=== PATIENT | female | born 1945 | race Caucasian/White ===

== ENCOUNTER 2021-12-08 05:18 | Inpatient (IN) ==
[2021-12-02 11:25] LABS: Basophils # 0.1 10*3/uL (0.0-0.2); Basophils % 0.8 % (0.0-0.8); Eosinophils # 0.1 10*3/uL (0.0-0.87); Eosinophils % 0.7 % (0.00-10.9); Hematocrit 37.4 VOL% (35.7-47.0); Hemoglobin 12.3 GM/DL (12.0-16.0); Immature Granulocytes % 0.5 %; Immature Granulocytes Absolute 0.05 #; Lymphocytes # 1.5 10*3/uL (1.4-4.0); Mean Corpuscular HGB Conc 32.9 GM/DL (32-36); Mean Corpuscular Volume 94.4 FL (87-102); Mean Platelet Volume 10.5 FL (9.6-12.0); Monocytes # 0.6 10*3/uL (0.11-0.8); Monocytes % 5.4 % (1.7-12.7); Neutrophils % 77.6 % (38.7-73.9); Platelet Count 194 T/CUMM (130-400); Red Blood Count 3.96 MC/CUMM (3.8-5.5); Red Cell Distribution Width 12.6 % (9.3-17.3); White Blood Count 10.3 T/CUMM (4-12)
[2021-12-02 11:32] LABS: Bacteria,Urine Occasional /HPF (Few); Mucus,Urine Many /LPF (Occasional); RBC,Urine 1 /HPF (0-4); Squamous Epithelial Cell,Urine Occasional /HPF (0-10); Urine Appearance Clear (Clear); Urine Color Yellow (Yellow)
[2021-12-02 11:33] LABS: Bilirubin,Urine Negative (Negative); Blood, Urine Negative (Negative); Glucose,Urine (UA) Negative (Negative); Ketones,Urine Negative (Negative); Nitrite,Urine Negative (Negative); Protein,Urine Negative (Negative); Urine Urobilinogen 0.2 eU/dL (<2.0); Urine pH 5.5 (4.5-8.0)
[2021-12-02 11:37] LABS: PT Patient Result 10.9 SECS (10.5-12.0); Partial Thromboplastin Time 27.9 SECS (23.7-32.9)
[2021-12-02 11:52] LABS: Albumin 4.5 G/DL (3.4-5.0); Bilirubin,Total 1.2 MG/DL (0.20-1.00); Calcium 9.6 MG/DL (8.5-10.1); Osmolality,Calculated 283.7 MOS/KG (273-304); Potassium 4.8 MMOL/L (3.5-5.1)
[2021-12-08] MEDS ORDERED: VANCOMYCIN INJ 1,000 MG in SODIUM CHLORIDE 0.9% 250 ML IV ONE (06:00)
[2021-12-08] MEDS ORDERED: BUPIVACAINE MPF 0.5% 30 ML VIAL ONE (06:27)
[2021-12-08] MEDS ORDERED: DEXAMETHASONE 4 MG/1 ML VIAL ONE ×2 (06:27→08:12)
[2021-12-08] MEDS ORDERED: MIDAZOLAM 2 MG/2 ML VIAL ONE (06:27)
[2021-12-08] MEDS ORDERED: propofoL 200 MG/20 ML VIAL IV ONE (06:27)
[2021-12-08] MEDS ORDERED: ONDANSETRON 4 MG/2 ML VIAL ONE (06:27)
[2021-12-08] MEDS ORDERED: buprenorphine HCL 0.3 MG/ML VIAL ONE (06:27)
[2021-12-08] MEDS ORDERED: DEXMEDETOMIDINE 200 MCG/2 ML VIAL ONE (06:27)
[2021-12-08] MEDS ORDERED: TRANEXAMIC ACID 1,000 MG/10 ML VIAL ONE (06:28)
[2021-12-08] MEDS ORDERED: DIAZEPAM 5 MG TABLET PO ONE (07:04)
[2021-12-08] MEDS ORDERED: ACETAMINOPHEN 500 MG TABLET PO ONE (07:04)
[2021-12-08] MEDS ORDERED: GABAPENTIN 400 MG CAPSULE PO ONE (07:04)
[2021-12-08] MEDS ORDERED: LACTATED RINGERS 1,000 ML IV SCH (07:30)
[2021-12-08] MEDS ORDERED: MAGNESIUM HYDROXIDE SUSP 30 ML UDCUP PO PRN (09:11)
[2021-12-08] MEDS ORDERED: PROMETHAZINE 25 MG/1 ML VIAL IM PRN (09:11)
[2021-12-08] MEDS ORDERED: ONDANSETRON 4 MG/2 ML VIAL IV PRN (09:11)
[2021-12-08] MEDS ORDERED: BISACODYL 10 MG SUPP RECTAL PRN (09:11)
[2021-12-08] MEDS ORDERED: diphenhydrAMINE CAP 25 MG CAPSULE PO PRN (09:11)
[2021-12-08] MEDS ORDERED: TEMAZEPAM 7.5 MG CAPSULE PO PRN (09:11)
[2021-12-08] MEDS ORDERED: MORPHINE 2 MG/1 ML SYRINGE IV PRN ×2 (09:11→09:25)
[2021-12-08] MEDS ORDERED: LACTULOSE 20 GM/30 ML UDCUP PO PRN (09:11)
[2021-12-08] MEDS ORDERED: MECLIZINE 25 MG TABLET PO PRN (09:13)
[2021-12-08] MEDS ORDERED: PHENYLEPHRINE 1 MG/10 ML SYRINGE IV ONE (09:28)
[2021-12-08] MEDS: ceFAZolin 2,000 MG/50 ML DUPLEX IV SCH ×2 (14:52→21:06)
[2021-12-08] MEDS: metFORMIN 500 MG TABLET PO SCH (17:21)
[2021-12-08] MEDS: amLODIPine 10 MG TABLET PO SCH (20:26)
[2021-12-08] MEDS: DOCUSATE SODIUM 100 MG CAPSULE PO SCH (20:26)
[2021-12-09 06:11] LABS: Basophils % 0.3 % (0.0-0.8); Eosinophils % 0.1 % (0.00-10.9); Hematocrit 28.8 VOL% (35.7-47.0); Hemoglobin 9.3 GM/DL (12.0-16.0); Immature Granulocytes % 0.5 %; Immature Granulocytes Absolute 0.07 #; Lymphocytes # 1.1 10*3/uL (1.4-4.0); Lymphocytes % 7.6 % (21.3-54.2); Mean Corpuscular HGB Conc 32.3 GM/DL (32-36); Mean Corpuscular Volume 96.6 FL (87-102); Mean Platelet Volume 10.9 FL (9.6-12.0); Monocytes # 0.6 10*3/uL (0.11-0.8); Neutrophils % 87.5 % (38.7-73.9); Platelet Count 159 T/CUMM (130-400); Red Blood Count 2.98 MC/CUMM (3.8-5.5); Red Cell Distribution Width 12.4 % (9.3-17.3)
[2021-12-09] MEDS: LEVOTHYROXINE 100 MCG TABLET PO SCH (06:18)
[2021-12-09] MEDS: ENOXAPARIN 30 MG/0.3 ML SYRINGE SUBCUT SCH (06:18)
[2021-12-09 06:30] LABS: Calcium 8.6 MG/DL (8.5-10.1); Osmolality,Calculated 280.7 MOS/KG (273-304); Potassium 4.8 MMOL/L (3.5-5.1)
[2021-12-09] MEDS: CLOPIDOGREL 75 MG TABLET PO SCH (08:42)
[2021-12-09] MEDS: CHOLECALCIFEROL 1,000 UNIT TABLET PO SCH (08:42)
[2021-12-09] MEDS: FOLIC ACID 1 MG TABLET PO SCH (08:42)
[2021-12-09] MEDS: SPIRONOLACTONE 50 MG TABLET PO SCH (08:42)
[2021-12-09] MEDS: metFORMIN 500 MG TABLET PO SCH ×3 (08:43→17:20)
[2021-12-09] MEDS: DOCUSATE SODIUM 100 MG CAPSULE PO SCH ×2 (08:43→21:29)
[2021-12-09] MEDS: ASCORBIC ACID 500 MG TABLET PO SCH (08:43)
[2021-12-09] MEDS: LOSARTAN 50 MG TABLET PO SCH (08:43)
[2021-12-09] MEDS: MULTIVITAMIN (CENTRUM) TABLET PO SCH (08:43)
[2021-12-09] MEDS: FUROSEMIDE 20 MG TABLET PO SCH (08:43)
[2021-12-09] MEDS: EZETIMIBE 10 MG TABLET PO SCH (08:44)
[2021-12-09] MEDS: GLIMEPIRIDE 2 MG TABLET PO SCH (08:51)
[2021-12-09] MEDS: PANTOPRAZOLE 40 MG TABLET PO SCH (08:51)
[2021-12-09] MEDS ORDERED: FILGRASTIM 300 MCG/0.5 ML SUBCUT SCH (09:00)
[2021-12-09] MEDS ORDERED: ASPIRIN EC 81 MG TABLET PO SCH ×2 (09:00→21:00)
[2021-12-09] MEDS ORDERED: ACETAMINOPHEN 325 MG TABLET PO PRN (09:12)
[2021-12-09] MEDS ORDERED: TUBERCULIN SKIN TEST 0.1 ML SYRINGE INTRADERM ONE (13:30)
[2021-12-09] MEDS: amLODIPine 10 MG TABLET PO SCH (21:29)
[2021-12-10] MEDS: LEVOTHYROXINE 100 MCG TABLET PO SCH (05:57)
[2021-12-10] MEDS: ENOXAPARIN 30 MG/0.3 ML SYRINGE SUBCUT SCH (05:57)
[2021-12-10 06:09] LABS: Basophils % 0.1 % (0.0-0.8); Eosinophils # 0.1 10*3/uL (0.0-0.87); Eosinophils % 0.3 % (0.00-10.9); Hematocrit 30.3 VOL% (35.7-47.0); Hemoglobin 9.9 GM/DL (12.0-16.0); Immature Granulocytes Absolute 0.67 #; Lymphocytes # 2.7 10*3/uL (1.4-4.0); Lymphocytes % 8.2 % (21.3-54.2); Mean Corpuscular HGB Conc 32.7 GM/DL (32-36); Mean Corpuscular Volume 96.8 FL (87-102); Mean Platelet Volume 10.5 FL (9.6-12.0); Neutrophils % 86.4 % (38.7-73.9); Platelet Count 152 T/CUMM (130-400); Red Blood Count 3.13 MC/CUMM (3.8-5.5); Red Cell Distribution Width 12.7 % (9.3-17.3); White Blood Count 33.4 T/CUMM (4-12)
[2021-12-10 06:44] LABS: Band Neutrophils 6 % (0-10); Eosinophils 1 % (0-10); Lymphocytes 8 % (20-55); Total Cells Counted 100
[2021-12-10 06:45] LABS: Macrocytosis Slight; Platelet Estimate Adequate
[2021-12-10] MEDS: PANTOPRAZOLE 40 MG TABLET PO SCH (09:38)
[2021-12-10] MEDS: CHOLECALCIFEROL 1,000 UNIT TABLET PO SCH (09:38)
[2021-12-10] MEDS: SPIRONOLACTONE 50 MG TABLET PO SCH (09:38)
[2021-12-10] MEDS: FOLIC ACID 1 MG TABLET PO SCH (09:38)
[2021-12-10] MEDS: ASCORBIC ACID 500 MG TABLET PO SCH (09:39)
[2021-12-10] MEDS: MULTIVITAMIN (CENTRUM) TABLET PO SCH (09:40)
[2021-12-10] MEDS: metFORMIN 500 MG TABLET PO SCH ×2 (09:40→12:07)
[2021-12-10] MEDS: EZETIMIBE 10 MG TABLET PO SCH (09:40)
[2021-12-10] MEDS: FUROSEMIDE 20 MG TABLET PO SCH (09:40)
[2021-12-10] MEDS: CLOPIDOGREL 75 MG TABLET PO SCH (09:41)
[2021-12-10] MEDS: GLIMEPIRIDE 2 MG TABLET PO SCH (09:41)
[2021-12-10] MEDS: LOSARTAN 50 MG TABLET PO SCH (09:41)
[2021-12-10] MEDS: DOCUSATE SODIUM 100 MG CAPSULE PO SCH (09:41)
[2021-12-10 15:56] VITALS: BP 159/63
== END 2021-12-10 16:09 | disposition swing bed (61) | DRG 470 ==
LOC: N.OR 05:18 → N.SDSINP 05:19 → N.3E 12:32
PROVIDERS: ADMIT Orthopaedic Surgery; ATTEND Orthopaedic Surgery